=== PATIENT | female | born 2000 | race Caucasian/White ===

== ENCOUNTER 2020-03-25 19:06 | Emergency (ER) | payer OTHER, SELFPAY ==
[2020-03-25 19:14] VITALS: BP 158/98; PULSE 83; RESP 15; TEMP 37.2; O2SAT 99
[2020-03-25] MEDS: diazePAM 5 MG TABLET PO (20:18)
--- NOTE | 2020-03-25 20:18 | ED.BACK ---
HPI - Back Pain/Injury General Chief Complaint: Back Pain/Injury Stated Complaint: back and leg pain Time Seen by Provider: 03/25/20 19:39 Source: patient Mode of arrival: ambulatory Limitations: no limitations History of Present Illness HPI Narrative: Patient is a 19-year-old female who presents to emergency department for evaluation of low back pain over the right SI joint radiating down the leg with history of similar occurrence notes moderate aching pain worse with any activity or movement has been taking ibuprofen with minimal improvement presents per private vehicle in no distress has not seen primary care for this denies injury or trauma or recent illness Related Data Allergies Allergy/AdvReac Type Severity Reaction Status Date / Time No Known Allergies Allergy Unverified 03/25/20 19:17 Review of Systems Review of Systems: All systems reviewed & are unremarkable except as noted in HPI and below PMFSH Social History Social History Gender identity (if verbalized by the patient): Female Exam Narrative: Exam Narrative: GENERAL: Well-appearing, well-nourished, and in no acute distress. HEAD: Normocephalic, atraumatic. EYES: PERRLA and EOMI. ENT: Nares clear, no rhinorrhea or epistaxis. Mucous membranes moist. CHEST: Clear to auscultation. No respiratory distress. No wheezes rales or rhonchi HEART: Regular rate and rhythm. No murmur heard. EXTREMITIES: Normal range of motion. No edema. Tenderness over the right SI joint no midline or left-sided tenderness SKIN: Warm, dry, no rash. NEURO: No focal deficits. Alert and oriented x3. Cranial nerves II through XII grossly intact. Normal speech and gait PSYCH: Normal mood and affect. Course Course Emergency Course: Patient in the room in no distress aware of case findings treatment plan and diagnosis agreeing to follow-up as directed or to return if symptoms worsen or concerns Vital Signs Vital signs: Vital Signs Temperature 99.0 F 03/25/20 19:14 Pulse Rate 83 03/25/20 19:14 Respiratory Rate 15 03/25/20 19:14 Blood Pressure 158/98 H 03/25/20 19:14 Pulse Oximetry 99 03/25/20 19:14 Temperature 99.0 F 03/25/20 19:14 Pulse Rate 83 03/25/20 19:14 Respiratory Rate 15 03/25/20 19:14 Blood Pressure 158/98 H 03/25/20 19:14 Pulse Oximetry 99 03/25/20 19:14 MDM - Back Pain/Injury MDM Narrative Medical decision making narrative: Patients pain is positional in nature and localized to back without signs of cord compression or cauda equina based on neurological exam, skeletal exam and history. No fever or other significant factors to suggest osteomyelitis or spinal epidural abscess. No symptoms or signs to suggest pain is referred from abdominal or / cardiopulmonary sources. No pulsatile masses noted on exam. Patient ambulates with steady gait and is stable for outpatient management given case findings. Discharge Plan Discharge Clinical Impression: Lumbar radiculopathy Patient Disposition: Home, Self-Care Condition: Stable Instructions: Antibiotic Form, Sciatica (ED) Additional Instructions: Medications as needed and prescribed. Limit lifting and bending. You may apply heat or cold to the area as needed. Follow up with your doctor for further care in the next 7 days. Contact your doctor or return to the emergency department if you develop problems with bladder or bowel function, weakness or loss of feeling in one or both of your legs, or any other serious concerns. Prescriptions: New cyclobenzaprine 10 mg tablet 10 mg PO TID PRN (Reason: muscle spasm) Qty: 20 RF: 0 naproxen [Naprosyn] 500 mg tablet 500 mg PO BID PRN (Reason: pain) Qty: 7 RF: 0 Follow-up/Referrals: PHYSICIAN,MANUFACTURING ENGINEERING TECHNICIAN [Primary Care Provider] - Kourtney Morton DO [Physician] - Stand Alone Forms: Work/School Release IP
[2020-03-25] MEDS: ACETAMINOPHEN 500 MG TABLET 1000 MG PO (20:21)
== END 2020-03-25 20:41 | disposition home or self-care (01) ==
PROVIDERS: Emergency Provider Emergency Medicine
DX: M54.16 Radiculopathy, lumbar region (principal)
CPT/HCPCS: 99283; A9270

== ENCOUNTER 2020-10-08 11:31 | Outpatient (CLI) | payer OTHER, SELFPAY ==
--- NOTE | ~2020-10-08 | XR_ITS ---
EXAMINATION: XR lumbar spine 6V w bending DATE: 10/08/2020 13:42 INDICATION: Low back pain TECHNIQUE: Anteroposterior, lateral in neutral, flexion and extension, and bilateral oblique views of the lumbar spine, and cone-down lateral view of the lumbosacral junction were obtained. COMPARISON: None. FINDINGS: There is no fracture, dislocation, or subluxation. No laxity is present with flexion or ext ension. The vertebral body heights and intervertebral disc spaces are normal. IMPRESSION: 1. No acute osseous abnormality. Reviewed, dictated and finalized at location A. GROUND WORKER
== END 2020-10-08 11:32 | disposition home or self-care (01) ==
PROVIDERS: PCP Internal Medicine Infectious Disease
DX: M54.5 Low back pain (principal); M79.661 Pain in right lower leg
CPT/HCPCS: 72114

== ENCOUNTER 2021-10-14 12:58 | Emergency (ER) | payer OTHER, SELFPAY ==
[2021-10-14 13:17] VITALS: BP 144/84; PULSE 102; RESP 18; TEMP 37.1; O2SAT 99
[2021-10-14 14:07] LABS: Basophils Percent Auto 0.2 % (0.2-1.2); Eosinophils Percent Auto 0.2 % (0-4.4); Hematocrit 39.9 % (37.0-47.0); Hemoglobin 14.1 g/dL (12.0-15.0); Immature Granulocyte Absolute 0.03 K/mm3 (0.00-0.031); Immature Granulocyte Percent A 0.3 % (0-0.5); Lymphocytes Absolute Auto 1.54 K/mm3 (0.9-3.2); Lymphocytes Percent Auto 16.6 % (18.3-44.2); Mean Corpuscular HGB Conc 35.3 g/dl (32-36); Mean Corpuscular Hemoglobin 30.1 pg (26-34); Mean Corpuscular Volume 85.3 fl (80-100); Mean Platelet Volume 9.4 fl (7.4-10.4); Monocytes Absolute Auto 0.4 K/mm3 (0.1-0.6); Monocytes Percent Auto 4.4 % (2.6-8.5); Neutrophils Absolute Auto 7.3 K/mm3 (1.3-6.7); Neutrophils Percent Auto 78.3 % (45.5-73.1); Platelet Count Result 317 k/mm3 (150-375); Red Blood Count 4.68 M/mm3 (4.2-5.4); Red Cell Distribution Width 11.9 % (11.5-14.5); White Blood Count 9.3 K/mm3 (4.5-10.0)
[2021-10-14 14:27] LABS: Alanine Aminotransferase 24 U/L (4-35); Albumin Level 4.8 g/dL (3.5-5.1); Alkaline Phosphatase 66 U/L (38-126); Anion Gap 13 mmol/L (8-16); Aspartate Amino Transferase 29 U/L (14-36); Blood Urea Nitrogen 9 mg/dL (7-17); Calcium 9.6 mg/dL (8.4-10.2); Carbon Dioxide 25 mmol/L (22-30); Chloride 100 mmol/L (98-107); Estimated CRCL calculation 118 ml/min; Estimated Glomerular Filt Rate > 60; Glucose 91 mg/dL (65-110); Lipase 133 U/L (23-300); Potassium 4.1 mmol/L (3.4-5.0); Sodium 138 mmol/L (137-145)
[2021-10-14] MEDS: ONDANSETRON INJ 4 MG/2 ML VIAL IV PUSH (14:27)
[2021-10-14] MEDS: SODIUM CHLORIDE 0.9% IV 1,000 ML 999 ML IV CONT ×2 (14:27→15:39)
[2021-10-14 14:44] LABS: Add Urine Microscopic? YES; Amorphous Sediment Urine Few; Appearance Urine Cloudy (Clear); Bacteria Urine Trace /hpf; Bilirubin Urine Negative (Negative); Blood Urine Negative (Negative); Color Urine Amber (Yellow); Glucose Urine UA Negative (Negative); Ketones Urine 2+ mg/dL (Negative); Leukocyte Esterase Ur Negative LEU/UL (Negative); Mucus Urine Heavy /lpf; Nitrate Urine Negative (Negative); Protein Urine 2+ mg/dL (Negative); Squamous Epithelial Cell Urine Many /hpf (Few)
[2021-10-14 17:38] VITALS: BP 132/67; PULSE 78; RESP 18; O2SAT 99
--- NOTE | 2021-10-14 17:57 | ED.GENADULT ---
HPI - General Adult General Chief complaint: Nausea/Vomiting/Diarrhea <Magdi Redd PA-C - Last Filed: 10/14/21 18:01> Stated complaint: vomiting, 10 weeks . <Magdi Redd PA-C - Last Filed: 10/14/21 18:01> Time Seen by Provider: 10/14/21 13:54 <Magdi Redd PA-C - Last Filed: 10/14/21 18:01> Source: patient <MUSA Pino Last Filed: 10/14/21 18:01> Mode of arrival: ambulatory <MUSA Pino Last Filed: 10/14/21 18:01> Limitations: no limitations <Magdi Redd PA-C - Last Filed: 10/14/21 18:01> History of Present Illness HPI narrative: Patient is 21-year-old female who is 10 weeks who was Covid positive presenting with chief complaint of nausea and vomiting since Wednesday. Patient reports that she originally had diarrhea but does not have it presently. Patient states she called her OBGYN Dr Gordon and was instructed to come tot he ER. Patient afebrile. Patient denies chest pain or shortness of breath. Denies vaginal bleeding or contractions. <Magdi Redd PA-C - Last Filed: 10/14/21 18:01> Related Data Allergies/adverse reactions: Allergies Allergy/AdvReac Type Severity Reaction Status Date / Time No Known Allergies Allergy Verified 10/14/21 13:22 <MUSA Pino Last Filed: 10/14/21 18:01> Review of Systems Review of Systems: CONSTITUTIONAL: Denies fever, chills, or sweats. EYES: Denies visual changes, redness, or discharge. ENT: Denies rhinorrhea, congestion, sore throat, or otalgia. CARDIOVASCULAR: Denies chest pain, palpitations, or edema. RESPIRATORY: Denies cough or dyspnea. GASTROINTESTINAL: Reports nausea and vomiting denies abdominal pain, or diarrhea. GENITOURINARY: Denies dysuria or hematuria. SKIN: Denies rash or itching. MUSCULOSKELETAL: Denies back pain, joint pain, or myalgia. NEUROLOGIC: Denies headache, numbness, dizziness, or weakness. PSYCHIATRIC: Denies anxiety or depression. <Magdi Redd PA-C - Last Filed: 10/14/21 18:01> PMFSH Social History Social History: Social History Gender identity (if verbalized by the patient): Female <Magdi Redd PA-C - Last Filed: 10/14/21 18:01> Exam Narrative: GENERAL: Well-appearing, well-nourished, and in no acute distress. HEAD: Normocephalic, atraumatic. EYES: PERRLA and EOMI. CHEST: Clear to auscultation. No respiratory distress. No wheezes rales or rhonchi HEART: Regular rate and rhythm. ABDOMEN: Soft, nontender, nondistended, normal active bowel sounds. EXTREMITIES: Normal range of motion. No edema. SKIN: Warm, dry, no rash. NEURO: No focal deficits. Alert and oriented x3. PSYCH: Normal mood and affect. <Magdi Redd PA-C - Last Filed: 10/14/21 18:01> Course SPECIALTY SALES REPRESENTATIVE/PA Physician Supervision For this patient encounter, I reviewed the SPECIALTY SALES REPRESENTATIVE or PA documentation, treatment plan, and medical decision making <Arian Tello MD - Last Filed: 10/14/21 20:33> Vital Signs Vital signs: Vital Signs Temperature 98.8 F 10/14/21 13:17 Pulse Rate 102 H 10/14/21 13:17 Respiratory Rate 18 10/14/21 13:17 Blood Pressure 144/84 H 10/14/21 13:17 Pulse Oximetry 99 10/14/21 13:17 Temperature 98.8 F 10/14/21 13:17 Pulse Rate 78 10/14/21 17:38 Respiratory Rate 18 10/14/21 17:38 Blood Pressure 132/67 10/14/21 17:38 Pulse Oximetry 99 10/14/21 17:38 <Magdi Redd PA-C - Last Filed: 10/14/21 18:01> Vital Signs Temperature 98.8 F 10/14/21 13:17 Pulse Rate 102 H 10/14/21 13:17 Respiratory Rate 18 10/14/21 13:17 Blood Pressure 144/84 H 10/14/21 13:17 Pulse Oximetry 99 10/14/21 13:17 Temperature 98.8 F 10/14/21 13:17 Pulse Rate 78 10/14/21 17:38 Respiratory Rate 18 10/14/21 17:38 Blood Pressure 132/67 10/14/21 17:38 Pulse Oximetry 99 10/14/21 17:38 <Arian Tello MD - Last Filed:
== END 2021-10-14 17:39 | disposition home or self-care (01) ==
PROVIDERS: Physician Assistant; Emergency Provider Emergency Medicine; PCP Internal Medicine Infectious Disease
DX: O98.511 Other viral diseases complicating pregnancy, first trimester (principal); O21.9 Vomiting of pregnancy, unspecified; Z3A.10 10 weeks gestation of pregnancy
CPT/HCPCS: 36415; 80053; 81001; 81025; 83690; 85025; 87086; 96361; 96374; 99284; J2405; J7030

== ENCOUNTER 2022-03-27 11:57 | Outpatient (CLI) | payer BC, OTHER, SELFPAY ==
[2022-03-27] VITALS (9 sets, daily range): BP systolic 116–150; BP diastolic 68–93; PULSE 81–100
[2022-03-27 12:35] LABS: Basophils Percent Auto 0.2 % (0.2-1.2); Eosinophils Absolute Auto 0.1 K/mm3 (0-0.3); Eosinophils Percent Auto 0.6 % (0-4.4); Hematocrit 32.3 % (37.0-47.0); Hemoglobin 11.4 g/dL (12.0-15.0); Immature Granulocyte Percent A 1.2 % (0-0.5); Lymphocytes Absolute Auto 1.22 K/mm3 (0.9-3.2); Lymphocytes Percent Auto 14.2 % (18.3-44.2); Mean Corpuscular HGB Conc 35.3 g/dl (32-36); Mean Corpuscular Hemoglobin 29.8 pg (26-34); Mean Corpuscular Volume 84.3 fl (80-100); Monocytes Absolute Auto 0.6 K/mm3 (0.1-0.6); Monocytes Percent Auto 6.4 % (2.6-8.5); Neutrophils Absolute Auto 6.6 K/mm3 (1.3-6.7); Neutrophils Percent Auto 77.4 % (45.5-73.1); Platelet Count Result 196 k/mm3 (150-375); Red Blood Count 3.83 M/mm3 (4.2-5.4); Red Cell Distribution Width 12.4 % (11.5-14.5); White Blood Count 8.6 K/mm3 (4.5-10.0)
[2022-03-27] MEDS: ACETAMINOPHEN 500 MG TABLET 1000 MG PO (12:50)
[2022-03-27] MEDS: BETAMETHASONE SOD PHOS/ACETATE 30 MG/5 ML VIAL 12 MG IM (12:51)
[2022-03-27] MEDS: CAFFEINE 200 MG TABLET PO (12:53)
[2022-03-27 12:55] LABS: Alanine Aminotransferase 13 U/L (6-35); Albumin Level 3.9 g/dL (3.5-5.1); Alkaline Phosphatase 94 U/L (38-126); Anion Gap 9 mmol/L (8-16); Appearance Urine Clear (Clear); Aspartate Amino Transferase 19 U/L (14-36); Bilirubin Urine Negative (Negative); Bilirubin,Total 0.3 mg/dL (0.2-1.3); Blood Urea Nitrogen 7 mg/dL (7-17); Blood Urine Negative (Negative); Calcium 8.8 mg/dL (8.4-10.2); Carbon Dioxide 18 mmol/L (22-30); Chloride 106 mmol/L (98-107); Color Urine Yellow (Yellow); Estimated Glomerular Filt Rate > 60; Glucose 112 mg/dL (65-110); Glucose Urine UA Negative (Negative); Ketones Urine Negative (Negative); Leukocyte Esterase Ur 1+ LEU/UL (NEGATIVE); Nitrate Urine Negative (Negative); Potassium 3.8 mmol/L (3.4-5.0); Protein Urine Negative (Negative); Sodium 133 mmol/L (137-145); Uric Acid 5.3 mg/dL (2.5-7.5); Urobilinogen Urine 0.2 mg/dL (<2.0)
[2022-03-27 13:24] LABS: Mucus Urine Rare /lpf; RBC Urine 0-2 /hpf (0-2); Squamous Epithelial Cell Urine Many /hpf (Few); Transitional Epi Cells Urine Rare /hpf (None Seen)
[2022-03-27 13:31] LABS: Add Urine Microscopic? YES
[2022-03-27 14:00] LABS: Creatinine Urine 86.9 mg/dL; Total Protein Urine Random 7 mg/dL; Ur Ttl Prot Creatinine Ratio 0.08 mg/mg (0-0.20)
--- NOTE | 2022-03-27 14:48 | PC.NURSE ---
1413- Spoke with Dr. Romero, labs, BPs and pain reviewed. Orders to discharge to home. patient to follow up next week.
== END 2022-03-27 14:40 | disposition home or self-care (01) ==
LOC: ANHOBOP 12:05 → ANHOBPP 12:07
PROVIDERS: PCP Internal Medicine Infectious Disease; Visit Provider Obstetrics & Gynecology
DX: O13.9 Gestational [pregnancy-induced] hypertension without significant proteinuria, unspecified trimester (principal); Z3A.00 Weeks of gestation of pregnancy not specified
CPT/HCPCS: 36415; 59025; 80053; 81001; 82570; 84156; 84550; 85025; 87086; 96372; 99199; A9270; J0702

== ENCOUNTER 2022-03-28 13:14 | Outpatient (CLI) | payer BC, OTHER, SELFPAY ==
[2022-03-28 13:39] VITALS: BP 119/72; PULSE 102
[2022-03-28 13:45] VITALS: BP 124/74; PULSE 88
--- NOTE | 2022-03-28 13:55 | PC.NURSE ---
Dr. Romero informed pt here for 2nd dose of Celestone today and c/o headache since this morning. Started as an 8, down to a 5 after Tylenol at 0700 but back up to an 8 now. Has blurred vision and white outlines around objects. Denies epigastric/RUQ pain. No edema. Biceps jerk 1+ and no clonus. Informed of reactive NST, BP's 119/72, 124/74, and 124/73. Discussed lab results from yesterday. Order received for Fioricet.
[2022-03-28 14:00] VITALS: BP 124/73; PULSE 97
--- NOTE | 2022-03-28 14:12 | PC.NURSE ---
Dr. Romero notified pt has nausea and has only drank 16 oz today. OK to give Zofran before meds to see if that will help nausea and PO intake.
[2022-03-28 14:14] VITALS: BP 124/73; PULSE 86
[2022-03-28] MEDS: BETAMETHASONE SOD PHOS/ACETATE 30 MG/5 ML VIAL 12 MG IM (14:18)
[2022-03-28] MEDS: ONDANSETRON HCL ODT 4 MG TABLET PO (14:22)
[2022-03-28] MEDS: ACETAMINOPHEN/BUTALBITAL/CAFFEINE 325-50-40 MG TABLET (FIORICET) 2 TAB PO (14:40)
--- NOTE | 2022-03-28 16:35 | PC.NURSE ---
Dr. Romero informed pt fell asleep after taking the Fioricet and initially stated her headache decreased to a 1 out of 10. Her nausea improved and had her start drinking fluids, but then pt states headache back to a 5 and feeling flushed. Temp 99.1 and cheeks are flushed. OK to COVID test and then discharge to home.
[2022-03-28 17:38] LABS: SARS-CoV-2 RNA PCR Negative
== END 2022-03-28 17:04 | disposition home or self-care (01) ==
LOC: ANHOBOP 13:23 → ANHOBPP 13:23
PROVIDERS: Obstetrics & Gynecology; PCP Internal Medicine Infectious Disease; Visit Provider Obstetrics & Gynecology
DX: R51.9 Headache, unspecified (principal); Z20.822 Contact with and (suspected) exposure to COVID-19
CPT/HCPCS: 59025; 96372; 99199; A9270; C9803; J0702; U0003; U0005

== ENCOUNTER 2022-04-18 12:30 | Inpatient (IN) | payer BC, OTHER, SELFPAY ==
[2022-04-18] VITALS (9 sets, daily range): BP systolic 101–142; BP diastolic 48–84; PULSE 83–100; TEMP 36.6–37.2; BMI 32.3
--- OUTSIDE RECORDS SUMMARY | 2022-04-18 12:35 | XMS_ITS ---
:2000 Author Care Team Providers Name Role Phone FREDO BRUNO MD Primary Care Provider [phone] Allergies Code Code System Name Reaction Severity Status Onset NKDA ? Medications Name Status Start Date Stop Date ? ? baclofen 10 mg tablet Completed ? 10/01/2021 diphenhydramine 25 mg tablet Active ? Not available Take 1 tablet every 4 hours by oral route. granisetron HCl 1 mg tablet Active ? Not available TAKE 1 TABLET BY MOUTH EVERY 12 HOURS NEEDED hydrocodone 5 mg-acetaminophen 325 mg tablet Completed ? 10/01/2021 methylprednisolone 4 mg tablets in a dose pack Completed ? 10/01/2021 FOLLOW PACKAGE DIRECTIONS metoclopramide 10 mg tablet Active ? Not available metronidazole 500 mg tablet Completed ? 10/21 TAKE 1 TABLET BY MOUTH EVERY 12 HOURS FOR 7 DAYS ondansetron 4 mg disintegrating tablet Active ? Not available ondansetron 8 mg disintegrating tablet Completed ? 01/28/2022 DISSOLVE 1 TABLET ON THE TONGUE TWICE DAILY NEEDED ondansetron HCl 4 mg tablet Completed ? 01/18 TAKE 1 TABLET BY MOUTH EVERY 4 TO 6 HOURS NEEDED Active ? Not available Sprintec (28) 0.25 mg-35 mcg tablet Completed ? 10/01/2021 Take 1 tablet every day by oral route. tramadol 50 mg tablet Completed ? 10/01/2021 Problems Name Status Onset Date Source ? SNOMED CT Concept Unknown 2019 History Finding of Regularity of Menstrual Cycle Unknown 019 History Active 11/05/2021 ? Moderate Hyperemesis Gravidarum Active ? ? Back Problem Active ?
--- OUTSIDE RECORDS SUMMARY | 2022-04-18 12:35 | XMS_ITS | Encounter Summary ---
:2000 Author Care Team Providers Name Role Phone Ford Michaud MD Primary Care Provider [phone] Reason for Visit None recorded. Assessment and Plan 1. -induced hypertension ? non-stress test Discussion Note: None recorded.Patient educational handouts: No information available. Plan of Care Reminders Provider Appointments Induction 2022 5:00PM Fernando Romero MD Lab None recorded. ? ? Referral None recorded. ? ? Procedures None recorded. ? ? Surgeries None recorded. ? ? Imaging Non-stress Test 04/06/2022 [place] Medications Name Start Date ? ? diphenhydramine 25 mg tablet ? Take 1 tablet every 4 hours by oral route. granisetron HCl 1 mg tablet ? TAKE 1 TABLET BY MOUTH EVERY 12 HOURS NEEDED metoclopramide 10 mg tablet ? Take 1 tablet 4 times a day by oral route. ondansetron 4 mg disintegrating tablet ? DISSOLVE 1 TABLET ON THE TONGUE EVERY 4 TO 6 HOURS NEEDED FOR NAUSEA ? Medications Administered None recorded. Vitals None recorded. Results Lab Results None recorded. Allergies Code Code System Name Reaction Severity Onset NKDA ? ? ? Problems Name Status Onset Date Source ? Active 11/05/2021 ? Moderate Hyperemesis Gravidarum Active ? ? Back Problem Active ? ? History of SARS-CoV-2 Active ? ? Procedures Date Name Performed by ? 03/25/2022 US, Obstetric, Follow-up [place] 2016 [place]
--- OUTSIDE RECORDS SUMMARY | 2022-04-18 12:35 | XMS_ITS | Encounter Summary ---
:2000 Author Care Team Providers Name Role Phone Ford Michaud MD Primary Care Provider [phone] Reason for Visit None recorded. Assessment and Plan 1. -induced hypertension ? non-stress test Discussion Note: None recorded.Patient educational handouts: No information available. Plan of Care Reminders Provider Appointments Induction 2022 5:00PM Fernando Romero MD Lab None recorded. ? ? Referral None recorded. ? ? Procedures None recorded. ? ? Surgeries None recorded. ? ? Imaging Non-stress Test 04/16/2022 [place] Medications Name Start Date ? ? diphenhydramine [...] Performed by ? 03/25/2022 US, Obstetric, Follow-up [place] [address] [place]
--- OUTSIDE RECORDS SUMMARY | 2022-04-18 12:35 | XMS_ITS | Encounter Summary ---
:2000 Author Care Team Providers Name Role Phone Ford Michaud MD Primary Care Provider [phone] Reason for Visit None recorded. Assessment and Plan 1. -induced hypertension ? non-stress test Discussion Note: None recorded.Patient educational handouts: No information available. Plan of Care Reminders Provider Appointments Induction 2022 5:00PM Fernando Romero MD Lab None recorded. ? ? Referral None recorded. ? ? Procedures None recorded. ? ? Surgeries None recorded. ? ? Imaging Non-stress Test 04/01/2022 [place] Medications Name Start Date ? ? diphenhydramine [...] Performed by ? 03/25/2022 US, Obstetric, Follow-up [place] [address] [place]
--- OUTSIDE RECORDS SUMMARY | 2022-04-18 12:35 | XMS_ITS | Encounter Summary ---
:2000 Author Care Team Providers Name Role Phone Ford Michaud MD Primary Care Provider [phone] Reason for Visit OB visit Assessment and Plan Assessment Note Patient is _36__weeks . Discuss ed plan. 1. Routine care Discussion Note: None recorded.Patient educational handouts: No information available. Plan of Care Reminders Provider Appointments Induction 2022 5:00PM Fernando Romero MD Lab None recorded. ? ? Referral None recorded. ? ? Procedures None recorded. ? ? Surgeries None recorded. ? ? Imaging None recorded. ? ? Medications Name Start Date ? ? diphenhydramine [...] NAUSEA ? Medications Administered None recorded. Vitals Height Weight BMI Blood Pressure 5 ft 6 in 198 lbs 32 kg/m2 129/82 mm[Hg] Results Lab Results None recorded. Allergies Code Code System Name Reaction Severity Onset NKDA ? ? ? Problems Name Status Onset Date Source ? Active 11/05/2021 ? Moderate Hyperemesis Gravidarum Active ? ? Back Problem Active ? ? History of SARS-CoV-2 Active ? ? Proc
--- OUTSIDE RECORDS SUMMARY | 2022-04-18 12:35 | XMS_ITS | Encounter Summary ---
:2000 Author Care Team Providers Name Role Phone Ford Michaud MD Primary Care Provider [phone] Reason for Visit OB visit Assessment and Plan Assessment Note Patient is ___weeks . Discussed plan. 1. Routine care Discussion Note: None [...] BMI Blood Pressure 5 ft 6 in 200 lbs 32.3 kg/m2 133/82 mm[Hg] Results Lab Results None recorded. Allergies Code Code System Name Reaction Severity Onset NKDA ? ? ? Problems Name Status Onset Date Source ? Active 11/05/2021 ? Moderate Hyperemesis Gravidarum Active ? ? Back Problem Active ? ? History of SARS-CoV-2 Active ? ? Proced
--- OUTSIDE RECORDS SUMMARY | 2022-04-18 12:35 | XMS_ITS | Encounter Summary ---
:2000 Author Care Team Providers Name Role Phone Ford Michaud MD Primary Care Provider [phone] Reason for Visit OB problem Assessment and Plan 1. Headache ? Reglan 10 mg tablet ? diphenhydramine 25 mg tablet 2. -induced hypertension Discussion Note: None recorded.Patient educational handouts: No [...] BMI Blood Pressure 5 ft 6 in 197 lbs 31.8 kg/m2 (1) 146/105 mm[ Hg] (2) 122/83 mm[Hg ] Results Lab Results None recorded. Allergies Code Code System Name Reaction Severity Onset NKDA ? ? ? Problems Name Status Onset Date Source ? Active 11/05/2021 ? Moderate Hyperemesis Gravidarum Active ? ? Back Pr
--- OUTSIDE RECORDS SUMMARY | 2022-04-18 12:35 | XMS_ITS | Encounter Summary ---
:2000 Author Care Team Providers Name Role Phone Ford Michaud MD Primary Care Provider [phone] Reason for Visit OB visit Assessment and Plan 1. Routine care 2. Moderate hyperemesis gravidarum Discussion Note: None recorded.Patient educational handouts: No [...] BMI Blood Pressure 5 ft 6 in 186 lbs 30 kg/m2 124/79 mm[Hg] Results Lab Results None recorded. Allergies Code Code System Name Reaction Severity Onset NKDA ? ? ? Problems Name Status Onset Date Source ? Active 11/05/2021 ? Moderate Hyperemesis Gravidarum Active ? ? Back Problem Active ? ? History of SARS-CoV-2 Active ? ? Procedures Date Name Performed by ?
--- OUTSIDE RECORDS SUMMARY | 2022-04-18 12:35 | XMS_ITS | Encounter Summary ---
:2000 Author Care Team Providers Name Role Phone Ford Michaud MD Primary Care Provider [phone] Reason for Visit OB visit Assessment and Plan Assessment Note Patient is ___weeks . Discussed plan. 1. Pre-eclampsia Discussion Note: None recorded.Patient educational handouts: No [...] ft 6 in 200 lbs 32.3 kg/m2 (1) 142/91 mm[H g] (2) 147/106 mm[H g] Results Lab Results None recorded. Allergies Code Code System Name Reaction Severity Onset NKDA ? ? ? Problems Name Status Onset Date Source ? Active 11/05/2021 ? Moderate Hyperemesis Gravidarum Active ? ? Back Problem Active ? ?
--- OUTSIDE RECORDS SUMMARY | 2022-04-18 12:35 | XMS_ITS | Encounter Summary ---
:2000 Author Care Team Providers Name Role Phone Ford Michaud MD Primary Care Provider [phone] Reason for Visit None recorded. Assessment and Plan 1. screening ? US, obstetric, follow-up Discussion Note: None recorded.Patient educational handouts: No information available. Plan of Care Reminders Provider Appointments Induction 2022 Fernando pitts MD 5:00PM Lab None recorded. ? ? Referral None recorded. ? ? Procedures None recorded. ? ? Surgeries None recorded. ? ? Imaging US, Obstetric, Follow-up 01/28/2022 [place] Medications Name Start Date ? ? diphenhydramine [...] ? Procedures Date Name Performed by ? 12/31/2021 US, Obstetric, 2Nd or 3Rd Trimester
--- OUTSIDE RECORDS SUMMARY | 2022-04-18 12:35 | XMS_ITS | Encounter Summary ---
:2000 Author Care Team Providers Name Role Phone Ford Michaud MD Primary Care Provider [phone] Reason for Visit None recorded. Assessment and Plan 1. COVID-19 ? US, obstetric, follow-up Discussion Note: None recorded.Patient educational handouts: No information available. Plan of Care Reminders Provider Appointments Induction 2022 Fernando pitts MD 5:00PM Lab None recorded. ? ? Referral None recorded. ? ? Procedures None recorded. ? ? Surgeries None recorded. ? ? Imaging US, Obstetric, Follow-up 03/25/2022 [facility] Medications Name Start Date ? [...] Performed by ? 03/25/2022 US, Obstetric, Follow-up [facility]
--- OUTSIDE RECORDS SUMMARY | 2022-04-18 12:35 | XMS_ITS | Encounter Summary ---
:2000 Author Care Team Providers Name Role Phone Ford Michaud MD Primary Care Provider [phone] Reason for Visit None recorded. Assessment and Plan 1. -induced hypertension ? non-stress test Discussion Note: None recorded.Patient educational handouts: No information available. Plan of Care Reminders Provider Appointments Induction 2022 5:00PM Fernando Romero MD Lab None recorded. ? ? Referral None recorded. ? ? Procedures None recorded. ? ? Surgeries None recorded. ? ? Imaging Non-stress Test 04/09/2022 [place] Medications Name Start Date ? ? diphenhydramine [...] Performed by ? 03/25/2022 US, Obstetric, Follow-up [place] [address] [place]
--- NOTE | 2022-04-18 13:04 | LDADM ---
This patient, Deanne Delgado, was admitted to Labor/Delivery/Recovery 106 on 04/18/22 at 12:30. Plans for labor, pain management and were discussed with patient. Patient/family oriented to hospital policies and general routines including ID bracelet, bed and alarms, visiting hours, pain management, procedures, bathroom and other care routines, personal items, smoking policy, room service/diet and guest tray routines, security routines, and visiting hours. Patient/Family are encouraged to report perceived risks to care and to ask questions if they do not understand what they are told or what they should do. See [facility]BI[facility] for further documentation.
[2022-04-18 13:22] LABS: Basophils Percent Auto 0.5 % (0.2-1.2); Eosinophils Percent Auto 0.3 % (0-4.4); Hematocrit 32.8 % (37.0-47.0); Hemoglobin 10.8 g/dL (12.0-15.0); Immature Granulocyte Percent A 1.2 % (0-0.5); Lymphocytes Absolute Auto 1.56 K/mm3 (0.9-3.2); Lymphocytes Percent Auto 18.1 % (18.3-44.2); Mean Corpuscular HGB Conc 32.9 g/dl (32-36); Mean Corpuscular Hemoglobin 28.4 pg (26-34); Mean Corpuscular Volume 86.3 fl (80-100); Mean Platelet Volume 10.4 fl (7.4-10.4); Monocytes Absolute Auto 0.6 K/mm3 (0.1-0.6); Monocytes Percent Auto 6.8 % (2.6-8.5); Neutrophils Absolute Auto 6.3 K/mm3 (1.3-6.7); Neutrophils Percent Auto 73.1 % (45.5-73.1); Platelet Count Result 202 k/mm3 (150-375); Red Cell Distribution Width 12.9 % (11.5-14.5); White Blood Count 8.6 K/mm3 (4.5-10.0)
[2022-04-18] MEDS: DINOPROSTONE 10 MG VAG INSERT VAGINAL (14:10)
[2022-04-18] MEDS: AMPICILLIN 2 GM/NS 100 ML 2 GM/100 ML BAG IVPB (15:19)
[2022-04-18] MEDS: LACTATED RINGERS 1,000 ML 125 ML IV CONT (15:19)
[2022-04-18] MEDS: AMPICILLIN 1 GM/NS 50 ML 1 GM/50 ML BAG IVPB ×2 (19:24→23:15)
--- NOTE | 2022-04-18 19:29 | WPDANESEPP ---
Anes - Eval Pre Procedure Procedure: labor epidural Date/Time: 04/18/22 19:29 Surgeon: mariana Pre Op Diagnosis: Labor/DFM Patient Data Age: 21 Gender: F Height: 1.68 m Weight: 91 kg Last Vital Signs Temp 36.6 C 04/18/22 16:00 Pulse 83 04/18/22 15:31 BP 101/48 L 04/18/22 15:31 O2 Del Method Room Air 04/18/22 13:02 Allergies Allergy/AdvReac Type Severity Reaction Status Date / Time No Known Allergies Allergy Verified 10/14/21 13:22 Home Medications Medication Instructions Recorded Confirmed Type granisetron HCl 1 mg tablet 1 mg PO BID PRN Nausea 03/28/22 04/18/22 History vit no.95-ferrous 1 tablet PO DAILY 03/28/22 04/18/22 History fumarate 28 mg-folic acid 800 mcg tablet () Laboratory Tests 04/18/22 04/18/22 04/18/22 13:14 13:14 13:14 WBC 8.6 K/mm3 K/mm3 (4.5-10.0) RBC 3.80 M/mm3 L M/mm3 (4.2-5.4) Hgb 10.8 g/dL L g/dL (12.0-15.0) Hct 32.8 % L % (37.0-47.0) MCV 86.3 fl fl (80-100) MCH 28.4 pg pg (26-34) MCHC 32.9 g/dl g/dl (32-36) RDW 12.9 % % (11.5-14.5) Plt Count 202 k/mm3 k/mm3 (150-375) MPV 10.4 fl fl (7.4-10.4) Immature Gran % (Auto) 1.2 % H % (0-0.5) Neut % (Auto) 73.1 % % (45.5-73.1) Lymph % (Auto) 18.1 % L % (18.3-44.2) [place] % (Auto) 6.8 % % (2.6-8.5) Eos % (Auto) 0.3 % % (0-4.4) Baso % (Auto) 0.5 % % (0.2-1.2) Lymph # (Auto) 1.56 K/mm3 K/mm3 (0.9-3.2) [place] # (Auto) 0.6 K/mm3 K/mm3 (0.1-0.6) Eos # (Auto) 0.0 K/mm3 K/mm3 (0-0.3) Baso # (Auto) 0.0 K/mm3 K/mm3 (0.0-0.1) Abs Immat Gran (auto) 0.10 K/mm3 H K/mm3 (0.00-0.031) Absolute Neuts (auto) 6.3 K/mm3 K/mm3 (1.3-6.7) Absolute Nucleated RBC 0.0 K/mm3 K/mm3 (0.0-0.012) Nucleated RBC % 0.0 % % (0.0-0.2) RPR Pending Blood Type A Positive Antibody Screen Negative Patient hx anesthesia problems: none Family hx anesthesia problems: none Results Review: All pre-operative results and documents have been reviewed as part of the pre-operative evaluation. ON LICENSE OF [facility] Family History Family History (Updated 04/13/22 @ 13:50 by Lynsey Hernandez RN) Grandparent Hypertension Alzheimer disease Mother Alzheimer disease Grandparent Cancer Social History Social History Smoking status: Never smoker Substance use: never Gender identity (if verbalized by the patient): Female Spiritual care concerns: No Exam Day of Procedure 04/18/22 19:29
[2022-04-19] VITALS (112 sets, daily range): BP systolic 97–154; BP diastolic 45–100; PULSE 66–158; RESP 16; TEMP 36.4–37.7; O2SAT 97–100
[2022-04-19] MEDS: AMPICILLIN 1 GM/NS 50 ML 1 GM/50 ML BAG IVPB ×5 (03:05→17:04)
[2022-04-19] MEDS: OXYTOCIN 30 UNITS/NS 500 ML 30 UNITS/500 ML BAG 6 UNITS IV CONT (03:06)
[2022-04-19] MEDS: ACETAMINOPHEN 500 MG TABLET 1000 MG PO ×2 (06:48→12:57)
[2022-04-19] MEDS: ONDANSETRON INJ 4 MG/2 ML VIAL IV PUSH (06:49)
[2022-04-19] MEDS: fentaNYL CITRATE INJ (*CRX) 100 MCG/2 ML VIAL 50 MCG IV PUSH (08:26)
[2022-04-19] MEDS: LACTATED RINGERS 1,000 ML 125 ML IV CONT ×2 (09:15→17:06)
[2022-04-19] MEDS: OXYTOCIN 30 UNITS/NS 500 ML 30 UNITS/500 ML BAG 125 UNITS IV CONT (18:56)
--- NOTE | 2022-04-19 19:06 | PM.OBPRVD ---
OB - Delivery Note Procedure Delivery date: 04/19/22 Procedure: Events: Gestational Hypertension Induction method: AROM, Per Pitocin Protocol and Per Cervidil Protocol Delivery monitor: External Uterine and Internal Uterine Route of delivery: Episiotomy description: None Laceration Description: Perineal - 2nd Degree Delivery repair: vicryl Specimen: No Quantitative Blood Loss (ml): 300 Anesthesia type: Epidural Disposition: Floor Complications: none [place] [facility] Date of : 04/19/22 Time of : 16:39 Weeks of gestation at delivery: 39 Weight (pounds): 6 Weight (ounces): 12 presentation: vertex score one minute: 8 score five minutes: 9
[2022-04-19] MEDS: BENZOCAINE 20% AER SPR (*SP) 56 GM CAN 1 SPRAY TOPICAL (20:33)
[2022-04-19] MEDS: WITCH HAZEL 40 PADS 1 PAD TOPICAL (20:33)
[2022-04-19] MEDS: IBUPROFEN 600 MG TABLET PO (20:33)
[2022-04-19] MEDS: ACETAMINOPHEN 325 MG TABLET 650 MG PO (22:32)
--- NOTE | 2022-04-20 01:42 | OBPPTRN ---
04/19/2022 at 2100 Patient transferred to post room #290. Support person (patient's sister) is present. Oriented to unit, room, information board, rooming in, admission packet and security measures. Patient verbalizes understanding.
[2022-04-20 03:55] VITALS: BP 119/74; PULSE 93; RESP 16; TEMP 36.5; O2SAT 97
[2022-04-20 05:27] LABS: Hematocrit 30.8 % (37.0-47.0); Hemoglobin 10.4 g/dL (12.0-15.0)
[2022-04-20 08:05] VITALS: BP 123/74; PULSE 92; RESP 18; TEMP 37; O2SAT 97
[2022-04-20] MEDS: IBUPROFEN 600 MG TABLET PO ×2 (08:19→17:21)
[2022-04-20] MEDS: DOCUSATE SODIUM 100 MG CAPSULE PO (08:19)
[2022-04-20] MEDS: MULTIVIT/MIN/PREN/FOL AC/IRON TABLET 1 TAB PO (08:19)
--- NOTE | 2022-04-20 08:41 | PM.OBPNVD ---
OB - PN: Subj Subjective Date/time seen: 04/20/22 08:41 Patient comments: no complaints, pain well controlled, incisional pain, tolerating diet and flatus present OB - PN: Obj Data Labs CBC & Chem 7: 04/20/22 04:01 Labs: Laboratory Results - last 24 hr 04/20/22 04:01 Hgb 10.4 L Hct 30.8 L OB - PN A/P Plan day: 1 Plan: routine care Comments: No problems, routine care Time Spent With Patient Time: Total time spent is greater than 50% in coordination of care (as documented) at patient's floor/unit and/or counseling patient: Exam Const: General: comfortable, no acute distress and alert Resp: Effort & Inspection: normal respiratory effort Auscultation: no crackles, no rales and no rhonchi Cardio: Rate: regular rate Heart sounds: no click, no murmurs and no rubs GI: Inspection: non-distended GI Palp: No Tenderness to palpation present (GI) Auscultation: normal bowel sounds Other: Incision - CDI Extrem: General: normal to inspection, no pedal edema and no calf tenderness
--- NOTE | 2022-04-20 11:07 | WPDANLDPN2 ---
Anes-Prog Note L&D Date/Time: 04/20/22 11:07 Comfortable throughout: labor and delivery Neuraxial method: epidural Epidural/Spinal procedure site: clean & non-tender Neuro status: Neuro function grossly intact. Vital Signs: Last Vital Signs Temp 37.0 C 04/20/22 08:05 Pulse 92 04/20/22 08:05 Resp 18 04/20/22 08:05 BP 123/74 04/20/22 08:05 Pulse Ox 97 04/20/22 08:05 O2 Del Method Room Air 04/18/22 13:02 Pain score (VAS): 0 I/O: Intake & Output 04/19/22 04/20/22 04/20/22 23:59 07:59 15:59 Intake Total 1850 600 240 Output Total 398 1000 Balance 1452 -400 240 Patient feedback: Patient satisfied with anesthetic care.
--- NOTE | 2022-04-20 11:57 | PC.NURSE ---
[id number] Introductions were made, then consulted with patient to assess needs related to . Mother led the conversation with her?plans to feed?her infant and the?experience so far and states it feels like a sharp pain. Suggestion was made to call for a latch assessment related to the painful latch. Resources provided for inpatient and outpatient services using a resource guide and mom/baby guide. Mother voiced understanding of information and will call if there is a request for assistance. Reported to primary RN. [phone] Consulted with patient to assess needs related to . Mother led conversation with her experience with feeding baby so far and states she just finished a 10 minute breastfeed on the left breast. Mother states there was tenderness at first with the latch, then it subsided. Mother works well with her infant with encouragement. Reviewed working with infant, breast, nipples and how to protect the nipples with an optimal deep latch, good positioning, and good hand washing. Encouraged understanding the benefits of skin to skin, responding to feeding cues, frequencies of feeding 8-12 times in 24 hours (approximately 2-3 hours), duration of feedings, milk production, intake/output feeding sheet and signs of adequate intake encouraging swallowing at the breast. Reviewed positioning and alignment, supporting breast, off-centered (asymmetrical latch) and leading with the chin with big open wide gape. Infant makes no attempts to receive the right breast at this time. RN changes large transitional stool diaper to stimulate infant. Infant is content and makes no attempts to breastfeed. Infant is skin to skin with mother with one fist closed and the right hand opened and relaxed. Mother makes the decision to visit with company at this time since infant is content. Resources used to facilitate learning were used from the visual handout/mom and baby guide. Mother voiced understanding of the education shared, calling for assistance if the does not latch, to stimulate about every 2 - 2 1/2 hours from the start of the last , or if there is discomfort with . Reported to the primary RN.
[2022-04-20 12:00] VITALS: BP 116/68; PULSE 88; RESP 18; TEMP 36.5; O2SAT 98
[2022-04-20 12:01] LABS: Rapid Plasma Reagin Non-Reactive (NonReactive)
[2022-04-20] MEDS: ACETAMINOPHEN 325 MG TABLET 650 MG PO ×2 (13:12→21:04)
[2022-04-20 17:45] VITALS: BP 119/58; PULSE 89; RESP 18; TEMP 36.6; O2SAT 98
[2022-04-20 20:55] VITALS: BP 125/69; PULSE 91; RESP 14; TEMP 36.8; O2SAT 100
[2022-04-21] MEDS: IBUPROFEN 600 MG TABLET PO (05:11)
[2022-04-21 08:00] VITALS: BP 104/61; PULSE 77; RESP 16; TEMP 36.4; O2SAT 100
--- NOTE | 2022-04-21 08:13 | PM.OBPNVD ---
OB - PN: Subj Subjective Date/time seen: 04/21/22 08:13 Patient comments: no complaints baby status: doing well OB - PN: Obj Data Labs CBC & Chem 7: 04/20/22 04:01 Labs: Laboratory Results - last 24 hr 04/18/22 13:14 RPR Non-reactive OB - PN A/P Plan day: 2 Plan: routine care and discharge home (F/U in 4 weeks) Time Spent With Patient Time: Total time spent is greater than 50% in coordination of care (as documented) at patient's floor/unit and/or counseling patient: Time with patient: less than 15 minutes Review of Systems Review of Systems: All systems reviewed & are unremarkable except as noted in HPI and below Exam Narrative: Fundus firm and vaginal flow controlled. No lower ext redness, warmth, or edema. Negative homans. Const: General: comfortable Chest: Breast/axilla inspection: normal inspection of the breasts Resp: Effort & Inspection: normal respiratory effort Cardio: Rate: regular rate GI: GI Palp: Yes Soft to palpation Psych: Appearance: grossly normal Affect: normal affect Attitude: cooperative Thought content: Yes Normal thought content present Judgement: Good judgement present (Psych)
[2022-04-21] MEDS: MULTIVIT/MIN/PREN/FOL AC/IRON TABLET 1 TAB PO (10:25)
[2022-04-21] MEDS: DOCUSATE SODIUM 100 MG CAPSULE PO (10:25)
[2022-04-21] MEDS: ACETAMINOPHEN 325 MG TABLET 650 MG PO (10:33)
[2022-04-21] MEDS: TETANUS,DIPHTHERIA,AC PERTUSSIS ADULT (0.5 ML) BOOSTRIX IM (13:27)
--- NOTE | 2022-04-21 14:18 | PC.NURSE ---
1310 - 1320 Mother led the conversation with her experience and plan to feed her infant so far and her ability to independently latch optimally without discomfort. Reminded mother and her sister to use good handwashing technique to prevent infection. Mother is feeding appropriately for growth of infant and understands stimulating to eat if needed. Sister mentioned they are being sent home with formula just in case they need it . Infant has had appropriate feedings in the last 24 hours meets the outcomes for weight, output and jaundice at this time. Mother states she is confident to continue effectively her at home or when to call for assistance and denies any additional assistance or education at this time. Reinforced understanding of milk production, transition of milk, signs of adequate intake, prevention/relief of engorgement, responsive after visualizing feeding cues, the different methods of stimulating to breastfeed 2-3 hours after the start of the last feeding, community resources, medication information reviewed per [facility] and when to call a provider using the resource of the mom and baby guide/[facility] website. Mother voiced understanding of the education shared. Reported to the primary RN.
[2022-04-23 12:28] VITALS: BP 119/66
--- NOTE | 2022-04-27 08:01 | PM.OBDSVD ---
DS: Admitting Diagnosis Discharge Date 04/23/22 Admitting Diagnosis Labor OB - DS: Summary OB Procedures : None OB Procedures Intrapartum: Spontaneous Vag Delivery OB Procedures: : None Time Spent with Patient Time attestation: Total time spent providing and/or coordinating discharge services: Exam Narrative: Fundus firm and vaginal flow controlled. No lower ext redness, warmth, or edema. Negative homans. Const: General: comfortable Chest: Breast/axilla inspection: normal inspection of the breasts Resp: Effort & Inspection: normal respiratory effort Cardio: Rate: regular rate GI: GI Palp: Yes Soft to palpation Psych: Appearance: grossly normal Affect: normal affect Attitude: cooperative Thought content: Yes Normal thought content present Judgement: Good judgement present (Psych) Discharge Plan Discharge Consulting providers: Gracie Keys ; Kourtney Parks ; Sindy Guzman Discharging Clinician: Gracie Keys Patient Disposition: Home, Self-Care Activity: pelvic rest Diet: regular Discharge Instructions: Education: Mom and Baby Guide Given to: Mother Follow-Up: Call your delivering provider's office for an appointment to be seen in: 4 Weeks Mom and baby should come to the [facility] for the follow-up appointment. Appointment Date/Time: April at 10:00 am What to expect at your follow-up visit: Physical Assessment Call [phone] if you are unable to keep your appointment time. BREAST CARE: * Wear a snug supportive bra. * For engorgement discomfort: Breast Feeding: * Apply warm moist washcloths * Express milk as needed to relieve engorgement * Wear loose clothing Bottle Feeding: * May apply ice packs * For sore nipples: * Identify correct latch-on * Apply warm moist washcloths before and after nursing * Air dry nipples after nursing * May apply Lansinoh cream to nipples EPISIOTOMY/PERINEAL CARE: * Until bleeding stops, use your priti bottle after urinating * Change your pad frequently throughout the day * You may take sitz baths several times a day (fill your bathtub with warm water and soak for 20 minutes.) Do NOT bathe in the water * No tub baths until seen by your physician - You may shower ACTIVITY: * Rest as much as possible. * Do not exercise or lift anything heavier than your baby (such as laundry or other children.) * Avoid stairs or driving as much as possible. * Do not put anything into the vagina. No douching, tampons, or sexual activity until seen by physician. NOTIFY PHYSICIAN IF YOU HAVE ANY QUESTIONS OR IF ANY OF THE FOLLOWING SYMPTOMS OCCUR: * If your episiotomy or incision becomes red, swollen, or more painful than what you have experienced in the hospital. * If your vaginal bleeding becomes foul smelling. * If your vaginal bleeding becomes more heavy than a period or if your bleeding changes from pink to bright red. However, you may pass an occasional walnut-sized clot once or twice for the first week . * If you experience a sharp, shooting pain in you calves. * If you discover a hard, reddened area on your breast or if you experience flu-like symptoms. DIET: * Eat regular, well-balanced meals. * Drink plenty of fluids daily. If , drink to thirst. Patient Instructions: Antibiotic Form Follow-up/Referrals: Gracie Keys CNM [Certified Nurse Hot Car Operator] - 4 Weeks Discharge Medications: Continued PNV [id number]-FA [] 28 mg iron- 800 mcg Tablet 1 tablet PO DAILY Discontinued granisetron HCl 1 mg tablet 1 mg PO BID PRN (Reason: Nausea) Date of admission: 04/18/22 12:30 Primary Care Provider: Jaswant,Ford Admitting Provider: Beltran Romero Attending physician on admission: Beltran Romero Condition: Stable
== END 2022-04-21 15:00 | disposition home or self-care (01) | DRG 807 ==
LOC: ANHLDR 12:33 → ANHOB2 04-19 21:38
PROVIDERS: Admitting Provider Obstetrics & Gynecology; PCP Internal Medicine Infectious Disease; Visit Provider Obstetrics & Gynecology
DX: O13.4 Gestational [pregnancy-induced] hypertension without significant proteinuria, complicating childbirth (principal); Z37.0 Single live birth; O70.1 Second degree perineal laceration during delivery; O76 Abnormality in fetal heart rate and rhythm complicating labor and delivery; Z3A.39 39 weeks gestation of pregnancy
CPT/HCPCS: 36415; 84112; 85014; 85018; 85025; 86592; 86850; 86900; 86901; 90715; A9270; J0290; J2405; J2590; J2795; J3010; J7120

== ENCOUNTER 2022-10-01 18:49 | Emergency (ER) | payer BC, OTHER, SELFPAY ==
--- NOTE | ~2022-10-01 | XR_ITS ---
XR wrist RT min 3V DATE: 10/01/2022 19:11 INDICATION: Wrist pain for 2 weeks after smashing wrist between doors TECHNIQUE: 4 views COMPARISON: None FINDINGS: No fracture or dislocation, periosteal reaction or bone destruction, joint space narrowing, erosive change or chondrocalcinosis. IMPRESSION: Negative Reviewed, dictated and finalized at location A. RAFT DETAIL DRAFTSPERSON IMPRESSION: Negative
--- NOTE | 2022-10-01 18:57 | ED.UPPEXIN ---
HPI - Extremity Injury (Upper) General Chief Complaint: Extremity Injury, Upper Stated Complaint: Right Wrist Pain Time Seen by Provider: 10/01/22 19:20 Source: patient, RN notes reviewed and old records reviewed Mode of arrival: ambulatory Limitations: no limitations History of Present Illness HPI narrative: 22-year-old female presents to the [facility] with complaints of right wrist pain. Pain is mostly to the volar aspect ulnar side. States that she closed her wrist in a door about 2 weeks ago. No treatment prior to arrival. No bruising or swelling noted. No signs of cellulitic changes. Sensation intact in all 5 fingers. Positive radial pulse. Capillary refill under 2 seconds Related Data Home Medications Medication Instructions Recorded Confirmed No Home Medications 10/01/22 10/01/22 Allergies Allergy/AdvReac Type Severity Reaction Status Date / Time No Known Allergies Allergy Verified 10/01/22 19:00 Review of Systems Review of Systems: All systems reviewed & are unremarkable except as noted in HPI and below Constitutional: Constitutional: Reports no additional constitutional complaints Eyes: Eyes: Reports no additional eye complaints ENT: Reports system reviewed and no additional complaints, except as documented Cardiovascular: Cardiovascular: Reports no additional cardiovascular complaints, Denies chest pain and Denies dyspnea Respiratory: Respiratory: Reports no additional respiratory complaints, Denies chest congestion, Denies cough and Denies dyspnea Gastrointestinal: Gastrointestinal: Reports no additional gastrointestinal complaints, Denies abdominal pain, Denies nausea and Denies vomiting Musculoskeletal: Musculoskeletal: Reports as per HPI and Reports arthralgias (Right wrist) Integumentary/Breasts: Skin/Breast: Reports system reviewed and no additional complaints, except as docu Neurologic: Reports system reviewed and no additional complaints, except as documented Psychiatric: Psychiatric: Reports no additional psychiatric complaints Allergic/Immunologic: Allergic/Immunologic: Reports no additional allergic/immunologic complaints [facility] Family History Family History (Updated 04/13/22 @ 13:50 by Lynsey Hernandez RN) Grandparent Hypertension Alzheimer disease Mother Alzheimer disease Grandparent Cancer Social History Social History Smoking status: Never smoker Substance use: never Gender identity (if verbalized by the patient): Female Spiritual care concerns: No Comments At the time of my signature, I reviewed and agree with the nursing past medical, surgical, social, and family history. There is no relevant family history pertinent to the patient complaint. Exam Const: General: cooperative, healthy appearing, comfortable, no acute distress, well developed, alert and well nourished Nutritional Appearance: well nourished and obese Orientation/consciousness: patient oriented x3 Limitations: no limitations HENMT: Head: normal to inspection Ears: hearing grossly normal bilaterally and external ears normal Face/Nose/Sinus: Normal external nose present, Normal nares present, Normal nasal mucous membranes and turbinates present and normal facial exam Face and sinus: normal facial exam Eyes: General: appearance normal, both eyes and all related structures Alignment and Position: alignment normal Periorbital: periorbital findings normal Conjunctivae: conjunctivae normal Pupils: Equal, round and reactive pupils present EOM: EOMs intact bilaterally Neck: Neck: normal visual inspection, full ROM, no lymphadenopathy and no meningeal signs Chest: Chest palpation & inspection: normal inspection of the chest Resp: Effort & Inspection: normal respiratory effort and able to speak in complete sentences Cardio: Rate: regular rate Rhythm: regular rhythm Back/Spine/Pelvis: Cervical Spine: cervical ROM normal Thor
[2022-10-01 19:00] VITALS: BP 158/95; PULSE 85; RESP 16; TEMP 36.9; O2SAT 100
== END 2022-10-01 19:29 | disposition home or self-care (01) ==
PROVIDERS: Emergency Provider Nurse Practitioner; PCP Internal Medicine Infectious Disease
DX: M25.531 Pain in right wrist (principal); W23.0XXA Caught, crushed, jammed, or pinched between moving objects, initial encounter
CPT/HCPCS: 73110; 99213; G0463

== ENCOUNTER 2023-07-04 10:24 | Emergency (ER) | payer BC, OTHER, SELFPAY ==
--- NOTE | ~2023-07-04 | XR_ITS ---
EXAMINATION: XR wrist LT min 3V DATE: 07/04/2023 10:56 INDICATION: Left wrist pain. TECHNIQUE: 4 views of left wrist were obtained. COMPARISON: None. FINDINGS: Bone alignment is normal. No fracture. Joint spaces are normal. IMPRESSION: 1. Normal left wrist. Reviewed, dictated and finalized at location A. IMPRESSION: 1. Normal left wrist.
[2023-07-04 10:42] VITALS: BP 152/89; PULSE 87; RESP 16; TEMP 37.3; O2SAT 100
--- NOTE | 2023-07-04 12:00 | ED.GENADULT ---
HPI - General Adult General Chief complaint: Extremity Injury, Upper Stated complaint: left wrist pain History of Present Illness HPI narrative: Patient presents for evaluation of left wrist pain since last night. She was doing some chores around her residence at the time of symptom onset. she does not provide me with a descriptive quality of the pain but states her pain is 8/10 severity. Pain shoots into the left forearm. She has associated paresthesias in all digits the left hand. She is right-hand dominant. 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 No specific injury or precipitating movement to cause her pain per her reports. She took tylenol for her pain. Related Data Home Medications Medication Instructions Recorded Confirmed No Home Medications 10/01/22 07/04/23 Allergies Allergy/AdvReac Type Severity Reaction Status Date / Time No Known Allergies Allergy Verified 07/04/23 10:42 Review of Systems Review of Systems: CONSTITUTIONAL: Denies fever, chills, or sweats. EYES: Denies visual changes, redness, or discharge. ENT: Denies rhinorrhea, congestion, sore throat, or otalgia. CARDIOVASCULAR: Denies chest pain, palpitations, or edema. RESPIRATORY: Denies cough or dyspnea. GASTROINTESTINAL: Denies abdominal pain, nausea, vomiting, or diarrhea. GENITOURINARY: Denies dysuria or hematuria. SKIN: Denies rash or itching. MUSCULOSKELETAL: Reports left wrist pain with radiation to left forearm NEUROLOGIC: Denies headache, numbness, dizziness, or weakness. PSYCHIATRIC: Denies anxiety or depression. 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 HEAD: Normocephalic, atraumatic. EYES: PERRLA and EOMI. ENT: Nares clear, no rhinorrhea or epistaxis. Mucous membranes moist. Oropharynx without tonsillar hypertrophy exudate or other lesions. Bilateral TMs pearly lilly nonbulging NECK: Supple. No adenopathy or masses. No carotid bruits or JVD CHEST: Clear to auscultation. No respiratory distress. No wheezes rales or rhonchi HEART: Regular rate and rhythm. No murmur heard. Normal peripheral pulses. ABDOMEN: Soft, nontender, nondistended, normal active bowel sounds. EXTREMITIES: No tenderness in left wrist or hand. Mild tenderness in distal aspect of left forearm just adjacent to the wrist. Full range of motion left wrist. Positive Tinel's on left. Negative Phalen's sign. 5/5 hand radar mechanic strength bilaterally. SKIN: Warm, dry, no rash. NEURO: No focal deficits. Alert and oriented x3. PSYCH: Normal mood and affect. Course Course Emergency Course: this is a 23-year-old female who presented for evaluation of left wrist pain. x-ray was negative. She has full range of motion. She was provided with an Deejay wrap. Recommended she purchase an [id number] Velcro wrist splint. Follow-up with primary provider to determine whether she needs nerve conduction study/EMG due to positive Tinel's sign on left. NSAIDs for pain. Follow up with primary provider. Go to the ER for worsening symptoms. Pt in agreement with plan of care. Level of Care: Express Care Visit Vital Signs Vital signs: Vit
== END 2023-07-04 11:36 | disposition home or self-care (01) ==
PROVIDERS: Emergency Provider Nurse Practitioner; PCP Internal Medicine Infectious Disease
DX: R20.2 Paresthesia of skin (principal); S66.912A Strain of unspecified muscle, fascia and tendon at wrist and hand level, left hand, initial encounter; X58.XXXA Exposure to other specified factors, initial encounter
CPT/HCPCS: 73110; 99213; G0463

== ENCOUNTER 2024-05-18 10:21 | Emergency (ER) | payer BC, SELFPAY ==
--- NOTE | ~2024-05-18 | XR_ITS ---
EXAMINATION: XR chest 2V 05/18/2024 11:39 INDICATION: Allergic reaction. History of anxiety. PROCEDURE: 2 view chest COMPARISON: No prior studies for comparison. FINDINGS: The lungs are clear. The cardiomediastinal silhouette is within normal limits. There are no pleural effusions. There is no pneumothorax suspected. IMPRESSION: 1: NO ACUTE CARDIOPULMONARY DISEASE. Reviewed, dictated and finalized at location B.
[2024-05-18 10:43] VITALS: BP 131/90; PULSE 69; RESP 18; TEMP 36.4; O2SAT 100
[2024-05-18 11:22] VITALS: BP 138/86; PULSE 76; RESP 16; TEMP 37.3; O2SAT 100
--- NOTE | 2024-05-18 11:52 | ED.ALLEREA ---
HPI - Allergic Reaction General Chief complaint: Allergic Reaction Stated complaint: rash on foot and facial swelling Time Seen by Provider: 05/18/24 11:27 Source: patient Mode of arrival: ambulatory Limitations: no limitations History of Present Illness HPI narrative: this is a 24-year-old female that presents to the emergency department with multiple complaints. Reports over the last couple of days she has been diffusely itching. She woke up this morning and had some swelling of her face. She also reports she has had a sore throat. Reports she did recently start using a new soap. She also reports she has had abnormal menstrual cycle. Is concerned she may be . Denies fever, rash, difficulty breathing or trouble swallowing. Related Data Home Medications Medication Instructions Recorded Confirmed No Home Medications 10/01/22 07/04/23 Allergies Allergy/AdvReac Type Severity Reaction Status Date / Time No Known Allergies Allergy Verified 05/18/24 10:22 Review of Systems Review of Systems: CONSTITUTIONAL: Denies fever ENT: Reports congestion, sore throat GASTROINTESTINAL: Reports nausea, vomiting SKIN: Reports itching. Denies rash All systems reviewed & are unremarkable except as noted in HPI and below PMFSH Past Medical History Medical History (Updated 05/18/24 @ 14:56 by Sharmin Plascencia PA-C) No pertinent past medical history Surgical History Surgical History No pertinent past surgical history Family History Family History Grandparent Hypertension Alzheimer disease Mother Alzheimer disease Grandparent Cancer Social History Social History Smoking status: Never smoker Substance use: never Living arrangements: with family Additional occupation/education comments: works at a [employer] Gender identity (if verbalized by the patient): Female Spiritual care concerns: No Exam Narrative: GENERAL: Well-appearing, well-nourished, and in no acute distress. HEAD: Normocephalic, atraumatic. EYES: EOMI. ENT: Nares clear, no rhinorrhea or epistaxis. Mucous membranes moist. Oropharynx without tonsillar hypertrophy exudate or other lesions. Bilateral TMs pearly lilly non-bulging NECK: Supple. No adenopathy or masses. CHEST: Clear to auscultation. No respiratory distress. No wheezes rales or rhonchi HEART: Regular rate and rhythm. No murmur heard. Normal peripheral pulses. EXTREMITIES: Normal range of motion. No edema. SKIN: Warm, dry, no rash. NEURO: No focal deficits. Alert and oriented x3. PSYCH: Normal mood and affect Course Course Emergency Course: Patient updated on her workup and agrees with plan of care Vital Signs Vital signs: Vital Signs Temperature 97.6 F 05/18/24 10:43 Pulse Rate 69 05/18/24 10:43 Respiratory Rate 18 05/18/24 10:43 Blood Pressure 131/90 05/18/24 10:43 Pulse Oximetry 100 05/18/24 10:43 Oxygen Delivery Room Air 05/18/24 10:43 Temperature 97.7 F 05/18/24 14:25 Pulse Rate 70 05/18/24 14:25 Respiratory Rate 18 05/18/24 14:25 Blood Pressure 130/74 05/18/24 14:25 Pulse Oximetry 98 05/18/24 14:25 Oxygen Delivery Room Air 05/18/24 11:22 MDM - Allergic Reaction MDM Narrative Medical decision making narrative: Patient presents to the ER for itching, facial swelling. Ongoing over the last several days. Reports a new soap. Also reporting abnormal menstrual cycle and concern for . Reporting a sore throat. She is a febrile and nontoxic appearing her vitals are stable. No swelling of the mouth or throat noted. Influenza, RSV, COVID and strep tests are negative. test is negative. Patient given antihistamines in the ER and has remained stable. Instructed on continued use of antihistamines. She is to follow up with
[2024-05-18] MEDS: diphenhydrAMINE HCl CAP 25 MG CAPSULE PO (12:02)
[2024-05-18] MEDS: FAMOTIDINE 20 MG TABLET PO (12:02)
[2024-05-18] MEDS: LORATADINE 10 MG TABLET PO (12:02)
[2024-05-18 12:36] LABS: Strep Group A RT-PCR NOT DETECTED (Negative)
[2024-05-18 12:47] LABS: Influenza A QL RT-PCR Negative (Negative); Influenza B QL RT-PCR Negative (Negative); RSV RNA, RT-PCR Negative (Negative); SARS-CoV-2 RNA PCR Negative (Negative)
[2024-05-18 13:35] LABS: BEDSIDEPREGUCG Negative
[2024-05-18 14:25] VITALS: BP 130/74; PULSE 70; RESP 18; TEMP 36.5; O2SAT 98
[2024-05-18] MEDS: dexAMETHasone SOD PHOS INJ 10 MG/ML 1 ML VIAL IM (16:01)
[2024-05-18 16:02] VITALS: BP 112/68; PULSE 80; RESP 14; O2SAT 99
== END 2024-05-18 16:03 | disposition home or self-care (01) ==
PROVIDERS: Emergency Provider Physician Assistant; PCP Internal Medicine Infectious Disease
DX: L29.9 Pruritus, unspecified (principal); Z20.822 Contact with and (suspected) exposure to COVID-19
CPT/HCPCS: 71046; 81025; 87637; 87651; 96372; 99283; A9270; J1100

== ENCOUNTER 2024-07-28 18:25 | Emergency (ER) | payer BC, SELFPAY ==
--- NOTE | ~2024-07-28 | XR_ITS ---
HISTORY: dog bite to dorsal hand, pain COMPARISON: None TECHNIQUE: 3 views of the left hand were performed. FINDINGS: No acute fracture is identified. The joint spaces are preserved. The carpal arcs are intact. Mild radiocarpal joint space narrowing with sclerosis of the distal radius is present. Trace negative ulnar variance is detected. Bone mineralization is unremarkable. No significant soft tissue swelling. No radiopaque foreign body is identified. 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 [facility]ER IMPRESSION: Trace degenerative disease without acute fracture or radiopaque fo reign body
[2024-07-28 18:35] VITALS: BP 140/84; PULSE 73; RESP 18; TEMP 36.9; O2SAT 100
--- NOTE | 2024-07-28 19:35 | ED_ITS ---
HPI - Skin/Abscess/Foreign Bdy General Chief complaint: Wound/Laceration Stated complaint: dog bite left hand/wrist, fingers are numb Time Seen by Provider: 07/28/24 19:35 Source: patient, RN notes reviewed and old records reviewed Mode of arrival: ambulatory Limitations: no limitations History of Present Illness HPI narrative: 24-year-old female to [facility] with complaint of left hand pain. Patient states that yesterday she was bitten by a dog in her neighborhood. Dog's vaccination status unknown. Patient has 1 small puncture wound to left lateral forearm, puncture wound to left lateral palm and several small abrasions to left dorsal hand. Patient endorsing pain in left distal dorsal hand and 4th digit. concerned for fracture. Requesting x-ray. patient resting comfortably in exam room in no acute distress. Related Data Allergies Allergy/AdvReac Type Severity Reaction Status Date / Time No Known Allergies Allergy Verified 07/23/24 21:00 Review of Systems Review of Systems: All systems reviewed & are unremarkable except as noted in HPI and below Constitutional: Constitutional: Reports no additional constitutional complaints Eyes: Eyes: Reports no additional eye complaints ENT: Reports system reviewed and no additional complaints, except as documented Cardiovascular: Cardiovascular: Reports no additional cardiovascular complaints, Denies chest pain and Denies dyspnea Respiratory: Respiratory: Reports no additional respiratory complaints, Denies cough and Denies dyspnea Musculoskeletal: Musculoskeletal: Reports as per HPI and Reports arthralgias ( Left hand) Integumentary/Breasts: Skin/Breast: Reports as per HPI and Reports wounds ( left lateral forearm, left hand) Neurologic: Reports system reviewed and no additional complaints, except as documented Psychiatric: Psychiatric: Reports no additional psychiatric complaints [facility] Past Medical History Medical History No pertinent past medical history Surgical History Surgical History No pertinent past surgical history Family History Family History Grandparent Hypertension Alzheimer disease Mother Alzheimer disease Grandparent Cancer Social History Social History Smoking status: Never smoker Substance use: never Living arrangements: with family Additional occupation/education comments: works at a [employer] Gender identity (if verbalized by the patient): Female Spiritual care concerns: No Comments At the time of my signature, I reviewed and agree with the nursing past medical, surgical, social, and family history. There is no relevant family history pertinent to the patient complaint. Exam Const: General: cooperative, healthy appearing, comfortable, no acute distress, alert and well nourished Nutritional Appearance: well nourished Orientation/consciousness: patient oriented x3 Limitations: no limitations HENMT: Head: normal to inspection Ears: external ears normal Face/Nose/Sinus: Normal external nose present, Normal nares present, normal facial exam, No erythema and No edema Face and sinus: normal facial exam, no erythema and no edema Mouth: Yes Normal oral and palatal mucosa present Eyes: General: appearance normal, both eyes and all related structures Neck: Neck: normal visual inspection, full ROM and no meningeal signs Chest: Chest palpation & inspection: normal inspection of the chest Resp: Effort & Inspection: normal respiratory effort and able to speak in complete sentences Cardio: Jugular venous distension: no JVD Rate: regular rate Rhythm: regular rhythm Back/Spine/Pelvis: Cervical Spine: cervical ROM normal Skin: General skin exam: normal color and wounds noted Wounds: wounds noted ( small scabbed puncture wound lt mid lateral forearm and lt lateral hand) puncture wound left lateral other without odor and with surrounding erythema Other: multiple abrasions various sizes, max 1 cm in size to left dorsal hand Neuro: General: patient oriented x3, gait normal, moves all extremities and no meningeal signs Speech: normal speech Gait exam (Neuro): Normal gait present Extrem: General: full ROM and capillary refill normal Left upper extremity: hand normal capillary refill, neuromotor exam normal, neurosensory exam normal, tendon exam normal, tenderness of the 4th digit at the proximal phalanx, swelling of the 4th digit at the proximal phalanx and ecchymosis of the 4th digit at the proximal phalanx Psych: Appearance: grossly normal and well kempt Course Course Emergency Course: Some parts of this dictation were generated by voice recognition software and may contain typographical and/or grammatical inaccuracies. Level of Care: Express Care Visit Vital Signs Vital signs: Vital Signs Temperature 36.9 C 07/28/24 18:35 Pulse Rate 73 07/28/24 18:35 Respiratory Rate 18 07/28/24 18:35 Blood Pressure 140/84 07/28/24 18:35 Pulse Oximetry 100 07/28/24 18:35 Oxygen Delivery Room Air 07/28/24 18:35 Temperature 36.9 C 07/28/24 18:35 Pulse Rate 73 07/28/24 18:35 Respiratory Rate 18 07/28/24 18:35 Blood Pressure 140/84 07/28/24 18:35 Pulse Oximetry 100 07/28/24 18:35 Oxygen Delivery Room Air 07/28/24 18:35 reviewed MDM - Skin/Abscess/Foreign Bdy MDM Narrative Medical decision making narrative: 24-year-old female to [facility] Care with complaint of left hand pain. Patient states that yesterday she was bitten by a dog in her neighborhood. Dog's vaccination status unknown. Patient has 1 small puncture wound to left lateral forearm, puncture wound to left lateral palm and several small abrasions to left dorsal hand. Patient endorsing pain in left distal dorsal hand and 4th digit. concerned for fracture. Requesting x-ray. patient resting comfortably in exam room in no acute distress. on exam, small scabbed puncture wound to left mid lateral forearm with surrounding erythema; Small scabbed puncture wound to left lateral hand with surrounding erythema; several superficial abrasions to left dorsal hand, largest size 1 cm. Fourth digit left hand with mild ecchymosis, mild swelling and tenderness to proximal phalanx. X-ray completed in clinic. Patient is sitting comfortably in exam room nontoxic in appearance. Patient appropriate for outpatient treatment and follow-up. Discharge instructions reviewed with patient, as well as provided in writing per nursing staff. The instructions also include specific and strict return/GO TO THE ER as well as f/u information. All questions have been answered, and the patient deny any further questions with discharge and discharge plan. Some parts of this dictation were generated by voice recognition software and may contain typographical and/or grammatical inaccuracies. Patient was still waiting for radiology results 2013. Provider attempted to call radiologist without success. Patient elected to be discharged home and receive phone call tomorrow. Note left for provider coming in on 07/29. Differential Diagnosis Differential diagnosis: Likely abscess of skin or subcutaneous tissue, viral exanthem, dermatophytosis, urticaria, herpes zoster, allergic reaction to drug, cellulitis, eczema, insect bites, impetigo and contact dermatitis Discharge Plan Discharge Clinical Impression: Dog bite Patient Disposition: Home, Self-Care Condition: Stable Instructions: Animal Bite (ED) Additional Instructions: please review attached instructions regarding animal bite and below suggestions as tolerated alternate Tylenol and ibuprofen as needed for pain please finish entire course of antibiotic treatment for new or worsening symptoms please go directly to the emergency department Prescriptions: New amoxicillin-pot clavulanate 875-125 mg tablet 1 tablet PO Q12H Qty: 20 0RF No Action ibuprofen 800 mg tablet 800 mg PO TID PRN (Reason: pain) Qty: 20 0RF Follow-up/Referrals: Jaswant,Eren Youngblood [Primary Care Provider] - Stand Alone Forms: Work/School Release IP
== END 2024-07-28 20:31 | disposition home or self-care (01) ==
PROVIDERS: Emergency Provider Nurse Practitioner Family; PCP Internal Medicine Infectious Disease
DX: S61.432A Puncture wound without foreign body of left hand, initial encounter (principal); S51.832A Puncture wound without foreign body of left forearm, initial encounter; S60.512A Abrasion of left hand, initial encounter; W54.0XXA Bitten by dog, initial encounter
CPT/HCPCS: 73130; 99213; G0463